=== PATIENT | male | born 1985 | race Caucasian/White ===

== ENCOUNTER 2016-10-18 20:15 | Observation (INO) ==
[2016-10-18] MEDS ORDERED: SODIUM CHLORIDE 1,000 ML IV STA (20:18)
[2016-10-18] MEDS ORDERED: TORADOL IVP STA (20:34)
[2016-10-18] MEDS ORDERED: PHENERGAN 25 MG/ML VIAL 25 MG in SODIUM CHLORIDE 50 ML IV STA (20:34)
--- NOTE | 2016-10-18 20:36 | ED.PDOC ---
General ED Provider: Dr. FABIOLA MURPHY Chief Complaint: Nausea/Vomiting Stated Complaint: Patient is a 31 year old who comes to the ER with Nausea vomiting and Diarrhea for the past 3 days. He was seen in the ER at [place] and given zofran. was told it was food poisoning. Continued to drive but had more diarrhea and abdominal cramping so stopped in the ER. Time Seen by Physician: 20:34 Mode of Arrival: Walk-In Information Source: Patient Nursing and Triage Documentation Reviewed and Agree: Yes GI Complaint Exam - Vomiting/Diarrhea Complaint/Exam Onset/Duration: 3 days Symptoms Are: Still present Episodes of Vomiting over last 24 Hours: 10 Episodes of Diarrhea Over Last 24 Hours: 5 Character of Vomiting: Reports: Non-bilious Character of Diarrhea: Reports: Watery Aggravating: Reports: Food Alleviating: Reports: None Associated Signs and Symptoms: Reports: Abdominal pain, Cramping Non-GI Risk Factors: Reports: None Surgical Obstruction Risk Factors: Reports: None Related Surgical History: Reports: None Abdominal Findings: Present: None Kussmaul Respirations Present: No Differential Diagnoses: Gastritis, Viral Gastroenteritis, Bacterial Gastroenteritis Review of Systems - Review Of Systems Constitutional: Reports: Loss of appetite Eyes: Reports: No symptoms Ears, Nose, Mouth, Throat: Reports: No symptoms Respiratory: Reports: No symptoms Cardiac: Reports: No symptoms GI: Reports: Diarrhea, Nausea, Poor appetite, Vomiting : Reports: No symptoms Musculoskeletal: Reports: No symptoms Skin: Reports: No symptoms Neurological: Reports: No symptoms Endocrine: Reports: No symptoms Hematologic/Lymphatic: Reports: No symptoms All Other Systems: Reviewed and Negative Past Medical History - Past Medical History Previously Healthy: Yes Endocrine: Reports: None Cardiovascular: Reports: None Respiratory: Reports: None Hematological: Reports: None Gastrointestinal: Reports: None Genitourinary: Reports: None Neuro/Psych: Reports: Migraine Musculoskeletal: Reports: None Cancer: Reports: None - Surgical History General Surgical History: Reports: Orthopedic (LEFT KNEE DEBRIDEMENT 2012) - Family History Family History: Reports: None - Social History Smoking Status: Never smoker Hx Substance Use: No Alcohol Screening: Occasionally - Immunizations Tetanus Shot up to Date: Yes Physical Exam - Physical Exam Appearance: Ill-appearing, Well-nourished Ill-appearing: Moderate Eyes: ABHI, EOMI, Conjunctiva clear ENT: Ears normal, Nose normal, Oropharynx normal Neck: Supple Respiratory: Airway patent, Breath sounds clear, Breath sounds equal, Respirations nonlabored Cardiovascular: Pulses normal, No rub, No murmur, Tachycardia GI/: Soft, No masses, No Organomegaly, Tender (diffuse ), Bowel sounds hyperactive Musculoskeletal: Normal strength, ROM intact, No edema, No calf tenderness Skin: Warm, Dry, Normal color Neurological: Sensation intact, Motor intact, Reflexes intact, Cranial nerves intact, Alert, Oriented Psychiatric: Anxious Critical Care Note - Critical Care Note Total Time (mins): 35 Course - Course Hematology/Chemistry: 10/19/16 04:45 10/19/16 04:45 Orders, Labs, Meds: Lab Review 10/18/16 20:40 WBC 6.16 RBC 5.11 Hgb 14.8 Hct 42.4 MCV 83.0 MCH 29.0 MCHC 34.9 RDW Coeff of Liezth 13.6 Plt Count 179 Immature Gran % (Auto) 0.2 Neut % (Auto) 73.4 Lymph % (Auto) 14.3 Alcorn % (Auto) 9.4 Eos % (Auto) 2.4 Baso % (Auto) 0.3 Immature Gran # (Auto) 0.0 Neut # 4.5 Lymph # 0.9 Alcorn # 0.6 Eos # 0.2 Baso # 0.0 Sodium 141 Potassium 3.1 L Chloride 102 Carbon Dioxide 28 Anion Gap 14.1 BUN 11 Creatinine 1.01 Estimated GFR (MDRD) 87.00 BUN/Creatinine Ratio 10.89 Glucose 103 H Calcium 9.1 Total Bilirubin 0.52 AST 18 ALT 43 Alkaline Phosphatase 64 Total Protein 6.8 Albumin 3.7 Globulin 3.1 Albumin/Globulin Ratio 1.19 Amylase 33 Lipase 11 Orders Category Date Time Status PLACE PATIENT OBSERVATION .TO MEDSURG (MONITORED BED ADMISSION 10/18/16 22: 50 Inactive ) PLACE PATIENT OBSERVATION .TO MEDSURG (NON-MONITORED ADMISSION 10/18/16 23: 04 Active BED) GIVE HS SNACK 2100 CARE 10/18/16 23:01 Active INTAKE & OUTPUT Q8HR CARE 10/18/16 22:50 Completed TELEMETRY MONITORING TELE CARE 10/18/16 22:58 Inactive VITAL SIGNS Q8HR CARE 10/18/16 22:50 Completed CLEAR LIQUID DIET DIETARY 10/18/16 Breakfast Ordered HS SNACK DIETARY 10/18/16 Dinner Ordered ED IV/MEDIPORT/POWERPORT .ONCE EMERGENCY 10/18/16 20:18 Active AMYLASE Stat LAB 10/18/16 20:40 Completed BASIC METABOLIC PANEL DAILY@0600 LAB 10/19/16 04:45 Completed BASIC METABOLIC PANEL DAILY@0600 LAB 10/20/16 06:00 Ordered BASIC METABOLIC PANEL DAILY@0600 LAB 10/21/16 06:00 Ordered BASIC METABOLIC PANEL DAILY@0600 LAB 10/22/16 06:00 Ordered BASIC METABOLIC PANEL DAILY@0600 LAB 10/23/16 06:00 Ordered BASIC METABOLIC PANEL DAILY@0600 LAB 10/24/16 06:00 Ordered BASIC METABOLIC PANEL DAILY@0600 LAB 10/25/16 06:00 Ordered BASIC METABOLIC PANEL DAILY@0600 LAB 10/26/16 06:00 Ordered BASIC METABOLIC PANEL DAILY@0600 LAB 10/27/16 06:00 Ordered BASIC METABOLIC PANEL DAILY@0600 LAB 10/28/16 06:00 Ordered BASIC METABOLIC PANEL DAILY@0600 LAB 10/29/16 06:00 Ordered BASIC METABOLIC PANEL DAILY@0600 LAB 10/30/16 06:00 Ordered BASIC METABOLIC PANEL DAILY@0600 LAB 10/31/16 06:00 Ordered BASIC METABOLIC PANEL DAILY@0600 LAB 11/01/16 06:00 Ordered BASIC METABOLIC PANEL DAILY@0600 LAB 11/02/16 06:00 Ordered BASIC METABOLIC PANEL DAILY@0600 LAB 11/03/16 06:00 Ordered BASIC METABOLIC PANEL DAILY@0600 LAB 11/04/16 06:00 Ordered BASIC METABOLIC PANEL DAILY@0600 LAB 11/05/16 06:00 Ordered BASIC METABOLIC PANEL DAILY@0600 LAB 11/06/16 06:00 Ordered BASIC METABOLIC PANEL DAILY@0600 LAB 11/07/16 06:00 Ordered CBC W/ AUTO DIFF DAILY@0600 LAB 10/19/16 04:45 Completed CBC W/ AUTO DIFF DAILY@0600 LAB 10/20/16 06:00 Ordered CBC W/ AUTO DIFF DAILY@0600 LAB 10/21/16 06:00 Ordered CBC W/ AUTO DIFF DAILY@0600 LAB 10/22/16 06:00 Ordered CBC W/ AUTO DIFF DAILY@0600 LAB 10/23/16 06:00 Ordered CBC W/ AUTO DIFF DAILY@0600 LAB 10/24/16 06:00 Ordered CBC W/ AUTO DIFF DAILY@0600 LAB 10/25/16 06:00 Ordered CBC W/ AUTO DIFF DAILY@0600 LAB 10/26/16 06:00 Ordered CBC W/ AUTO DIFF DAILY@0600 LAB 10/27/16 06:00 Ordered CBC W/ AUTO DIFF DAILY@0600 LAB 10/28/16 06:00 Ordered CBC W/ AUTO DIFF DAILY@0600 LAB 10/29/16 06:00 Ordered CBC W/ AUTO DIFF DAILY@0600 LAB 10/30/16 06:00 Ordered CBC W/ AUTO DIFF DAILY@0600 LAB 10/31/16 06:00 Ordered CBC W/ AUTO DIFF DAILY@0600 LAB 11/01/16 06:00 Ordered CBC W/ AUTO DIFF DAILY@0600 LAB 11/02/16 06:00 Ordered CBC W/ AUTO DIFF DAILY@0600 LAB 11/03/16 06:00 Ordered CBC W/ AUTO DIFF DAILY@0600 LAB 11/04/16 06:00 Ordered CBC W/ AUTO DIFF DAILY@0600 LAB 11/05/16 06:00 Ordered CBC W/ AUTO DIFF DAILY@0600 LAB 11/06/16 06:00 Ordered CBC W/ AUTO DIFF DAILY@0600 LAB 11/07/16 06:00 Ordered CBC W/ AUTO DIFF Stat LAB 10/18/16 20:40 Completed COMPREHENSIVE METABOLIC PANEL Stat LAB 10/18/16 20:40 Completed LIPASE Stat LAB 10/18/16 20:40 Completed URINALYSIS C & S IF INDICATED Stat LAB 10/18/16 20:18 Completed 0.9 % Sodium Chloride [Saline Flush] MEDS 10/18/16 20:24 Active 1 syr IVF PRN PRN Cetirizine HCl [Zyrtec] MEDS 10/19/16 09:00 Active 10 mg PO DAILY Diphenoxylate HCl/Atropine [Lomotil] MEDS 10/19/16 09:00 Active 1 tab PO TID Enoxaparin Sodium [Lovenox] MEDS 10/19/16 09:00 Active 40 mg SUBCUT DAILY Ketorolac Tromethamine [Toradol] MEDS 10/18/16 20:34 Discontinued 30 mg IVP ONCE STA Ondansetron HCl/Pf [Zofran 4 mg/2 ml] MEDS 10/18/16 22:57 Discontinued 4 mg .ROUTE .STK-MED ONE Ondansetron HCl/Pf [Zofran 4 mg/2 ml] MEDS 10/18/16 23:02 Discontinued 4 mg IVP ONCE STA Ondansetron HCl/Pf [Zofran 4 mg/2 ml] MEDS 10/18/16 22:50 Active 4 mg IVP Q6H PRN Pantoprazole Sodium [Protonix IV] MEDS 10/19/16 09:00 Active 40 mg IVP DAILY Pantoprazole Sodium [Protonix IV] MEDS 10/18/16 20:37 Discontinued 40 mg IVP ONCE STA Potassium Chloride [K-Dur] MEDS 10/18/16 22:09 Discontinued 40 meq PO ONCE STA Promethazine HCl [Phenergan 25 mg/ml Vial] MEDS 10/18/16 20:46 Discontinued 25 mg .ROUTE .STK-MED ONE Promethazine HCl [Phenergan 25 mg/ml Vial] 25 mg MEDS 10/18/16 20:34 Discontinued 0.9 % Sodium Chloride [Sodium Chloride] 50 ml IV ONCE Sodium Chloride 0.9% [Sodium Chloride] 1,000 ml MEDS 10/18/16 20:18 Discontinued IV BOLUS Sodium Chloride 0.9% [Sodium Chloride] 2,000 ml MEDS 10/18/16 23:00 Active IV 150 mls/hr RESUSCITATION STATUS Routine OTHERS 10/18/16 22:50 Ordered Medications Generic Name Dose Route Start Last Admin Trade Name Freq PRN Reason Stop Dose Admin Cetirizine HCl 10 mg 10/19/16 09:00 Zyrtec PO DAILY NIYA Diphenoxylate HCl/Atropine 1 tab 10/19/16 09:00 Lomotil PO TID NIYA Enoxaparin Sodium 40 mg 10/19/16 09:00 Lovenox SUBCUT DAILY NIYA Sodium Chloride 2,000 mls @ 150 mls/hr 10/18/16 23:00 10/19/16 05:55 Sodium Chloride IV 150 mls/hr .[id number] NIYA Administration Ondansetron HCl 4 mg 10/18/16 22:50 Zofran 4 Mg/2 Ml IVP Q6H PRN Nausea / Vomiting Pantoprazole Sodium 40 mg 10/19/16 09:00 Protonix Iv IVP DAILY NIYA Sodium Chloride 1 syr 10/18/16 20:24 10/18/16 20:53 Saline Flush IVF 1 syr PRN PRN Administration To flush IV Discontinued Medications Generic Name Dose Route Start Last Admin Trade Name Freq PRN Reason Stop Dose Admin Sodium Chloride 1,000 mls @ 1,000 mls/hr 10/18/16 20:18 10/18/16 20:44 Sodium Chloride IV 10/18/16 21:17 1,000 mls/hr BOLUS STA Administration Promethazine HCl 25 mg/ Sodium 51 mls @ 75 mls/hr 10/18/16 20:34 10/18/16 21: 01 Chloride IV 10/18/16 21:14 75 mls/hr ONCE STA Administration Ketorolac Tromethamine 30 mg 10/18/16 20:34 10/18/16 21:01 Toradol IVP 10/18/16 20:35 30 mg ONCE STA Administration Ondansetron HCl 4 mg 10/18/16 23:02 10/18/16 23:21 Zofran 4 Mg/2 Ml IVP 10/18/16 23:03 4 mg ONCE STA Administration Pantoprazole Sodium 40 mg 10/18/16 20:37 10/18/16 20:50 Protonix Iv IVP 10/18/16 20:38 40 mg ONCE STA Administration Potassium Chloride 40 meq 10/18/16 22:09 10/18/16 22:17 K-Dur PO 10/18/16 22:10 40 meq ONCE STA Administration Vital Signs: Temp Pulse Resp BP Pulse Ox 10/18/16 20:17 99.4 F 105 H 18 154/99 H 94 L Departure - Departure Time of Disposition: 23:40 Disposition: PLACED OBSERVATION Discharge Problem: Nausea, Vomiting, Acute gastroenteritis Condition: Good Pt referred to PMD for follow-up: No (Admitted ) Allergies/Adverse Reactions: Allergies Penicillins Adverse Reaction (Verified 10/18/16 20:26) Home Medications: Ambulatory Orders Cetirizine HCl [Zyrtec] 10 mg PO DAILY 10/18/16 Loperamide HCl [Imodium] 2 mg PO LOOSE STOOL PRN PRN 10/18/16 Ondansetron HCl [Zofran] 4 mg PO Q8H PRN 10/18/16 Ranitidine HCl [Zantac] 150 mg PO BEDTIME PRN 10/18/16
[2016-10-18] MEDS ORDERED: PROTONIX IV IVP STA (20:37)
[2016-10-18 20:42] LABS: BASOPHILS % (AUTO) 0.3 % (0.0-3.0); EOSINOPHILS # (AUTO) 0.2 K/ul (0.0-0.7); EOSINOPHILS % (AUTO) 2.4 % (0.0-7.0); HEMATOCRIT 42.4 % (42.0-52.0); HEMOGLOBIN 14.8 g/dl (14.0-18.0); IMMATURE GRANULOCYTE % (AUTO) 0.2 % (0.0-5.0); LYMPHOCYTES # (AUTO) 0.9 K/uL (0.60-3.4); LYMPHOCYTES % (AUTO) 14.3 (10.0-50.0); MEAN CORPUSCULAR HGB CONC 34.9 (31.8-35.4); MONOCYTES # (AUTO) 0.6 K/uL (0.4-2.0); MONOCYTES % (AUTO) 9.4 (0-10); NEUTROPHILS # (AUTO) 4.5 K/ul (2.0-6.9); NEUTROPHILS % (AUTO) 73.4; PLATELET COUNT 179 10^3/uL (140-440); RED BLOOD COUNT 5.11 10^6/ul (4.70-6.10); WHITE BLOOD COUNT 6.16 K/ul (4.2-10.2)
[2016-10-18] MEDS ORDERED: PHENERGAN 25 MG/ML VIAL ONE (20:46)
[2016-10-18 21:03] LABS: ALBUMIN 3.7 g/dL (3.4-5.0); ALBUMIN/GLOBULIN RATIO 1.19; ANION GAP 14.1; BILIRUBIN,TOTAL 0.52 mg/dL (0.00-1.20); BUN/CREATININE RATIO 10.89; CALCIUM 9.1 mg/dL (8.2-10.2); CREATININE 1.01 mg/dL (0.60-1.10); POTASSIUM 3.1 mmol/L (3.5-5.1); TOTAL PROTEIN 6.8 g/dL (6.4-8.2)
[2016-10-18] MEDS ORDERED: K-DUR PO STA (22:09)
[2016-10-18] MEDS: SODIUM CHLORIDE 2,000 ML IV SCH (22:45)
[2016-10-18] MEDS ORDERED: ZOFRAN 4 MG/2 ML IVP PRN (22:50)
[2016-10-18] MEDS ORDERED: ZOFRAN 4 MG/2 ML ONE (22:57)
[2016-10-18] MEDS ORDERED: ZOFRAN 4 MG/2 ML IVP STA (23:02)
[2016-10-19 00:26] VITALS: BMI 36.8
[2016-10-19 00:56] LABS: BILIRUBIN,URINE Negative (NEGATIVE); KETONES,URINE Negative (NEGATIVE); LEUKOCYTE ESTERASE ,URINE Negative (NEGATIVE); NITRITE,URINE Negative (NEGATIVE); PROTEIN,URINE Negative (NEGATIVE); URINE, BLOOD Negative (NEGATIVE)
[2016-10-19 00:59] LABS: ADD URINE MICROSCOPIC NO
[2016-10-19 05:34] LABS: BASOPHILS % (AUTO) 0.2 % (0.0-3.0); EOSINOPHILS # (AUTO) 0.1 K/ul (0.0-0.7); EOSINOPHILS % (AUTO) 1.4 % (0.0-7.0); HEMATOCRIT 38.4 % (42.0-52.0); HEMOGLOBIN 13.3 g/dl (14.0-18.0); IMMATURE GRANULOCYTE % (AUTO) 0.2 % (0.0-5.0); LYMPHOCYTES # (AUTO) 0.9 K/uL (0.60-3.4); LYMPHOCYTES % (AUTO) 17.8 (10.0-50.0); MEAN CORPUSCULAR HEMOGLOBIN 28.8 pg (27.0-31.0); MEAN CORPUSCULAR HGB CONC 34.6 (31.8-35.4); MEAN CORPUSCULAR VOLUME 83.1 fl (80.0-94.0); MONOCYTES # (AUTO) 0.5 K/uL (0.4-2.0); MONOCYTES % (AUTO) 9.9 (0-10); NEUTROPHILS # (AUTO) 3.4 K/ul (2.0-6.9); NEUTROPHILS % (AUTO) 70.5; PLATELET COUNT 162 10^3/uL (140-440); RED BLOOD COUNT 4.62 10^6/ul (4.70-6.10); WHITE BLOOD COUNT 4.84 K/ul (4.2-10.2)
[2016-10-19] MEDS: SODIUM CHLORIDE 2,000 ML IV SCH ×3 (05:55→14:19)
[2016-10-19 06:01] LABS: ANION GAP 14.3; BUN/CREATININE RATIO 14.1; CALCIUM 8.2 mg/dL (8.2-10.2); CREATININE 0.78 mg/dL (0.60-1.10); POTASSIUM 3.3 mmol/L (3.5-5.1)
[2016-10-19] MEDS: LOMOTIL PO SCH ×3 (09:02→20:10)
[2016-10-19] MEDS: ZYRTEC PO SCH (09:04)
[2016-10-19] MEDS: LOVENOX SUBCUT SCH (09:07)
[2016-10-19] MEDS: PROTONIX IV IVP SCH (09:28)
[2016-10-19] MEDS ORDERED: K-DUR PO STA (13:31)
[2016-10-19] MEDS ORDERED: TYLENOL PO PRN (13:46)
[2016-10-20 05:26] LABS: BASOPHILS % (AUTO) 0.5 % (0.0-3.0); EOSINOPHILS # (AUTO) 0.4 K/ul (0.0-0.7); EOSINOPHILS % (AUTO) 6.1 % (0.0-7.0); HEMATOCRIT 38.5 % (42.0-52.0); HEMOGLOBIN 13.6 g/dl (14.0-18.0); IMMATURE GRANULOCYTE % (AUTO) 0.3 % (0.0-5.0); LYMPHOCYTES # (AUTO) 1.7 K/uL (0.60-3.4); LYMPHOCYTES % (AUTO) 27.3 (10.0-50.0); MEAN CORPUSCULAR HEMOGLOBIN 29.2 pg (27.0-31.0); MEAN CORPUSCULAR HGB CONC 35.3 (31.8-35.4); MEAN CORPUSCULAR VOLUME 82.8 fl (80.0-94.0); MONOCYTES # (AUTO) 0.6 K/uL (0.4-2.0); MONOCYTES % (AUTO) 9.2 (0-10); NEUTROPHILS # (AUTO) 3.5 K/ul (2.0-6.9); NEUTROPHILS % (AUTO) 56.6; PLATELET COUNT 184 10^3/uL (140-440); RED BLOOD COUNT 4.65 10^6/ul (4.70-6.10); WHITE BLOOD COUNT 6.22 K/ul (4.2-10.2)
[2016-10-20 05:37] LABS: ANION GAP 14.1; BUN/CREATININE RATIO 7.79; CALCIUM 8.8 mg/dL (8.2-10.2); CREATININE 0.77 mg/dL (0.60-1.10); POTASSIUM 3.1 mmol/L (3.5-5.1)
[2016-10-20] MEDS: LOMOTIL PO SCH (08:29)
[2016-10-20] MEDS: LOVENOX SUBCUT SCH ×2 (08:29→08:32)
[2016-10-20] MEDS: ZYRTEC PO SCH (08:29)
[2016-10-20] MEDS: PROTONIX IV IVP SCH (08:30)
[2016-10-20] MEDS ORDERED: K-DUR PO STA ×2 (08:32→09:07)
[2016-10-20 11:04] VITALS: BP 144/95; TEMP 98
--- NOTE | 2016-10-20 14:22 | PN ---
DATE OF SERVICE: 10/18/16 CHIEF COMPLAINT: Nausea and vomiting. HISTORY OF PRESENT ILLNESS: The patient is a 31 year old male was started from [place] traveling home from [place] to the [place] started having the nausea, vomiting and diarrhea. Went to the emergency room in [place] and was given some IV fluids and Zofran got better and started driving again. While passing through [place] started having the diarrhea and this is 10 time, watery and nonbloody diarrhea five times and nonbloody and only watery diarrhea, cramps and was not feeling good so came to the emergency room and was seen by Dr. Avitia in the [place] ER.Initial Potassium was 3.1, glucose 103. He did says that he had some sandwich at the [employer] which started the symptoms. At that time Dr. Avitia did give some IV fluids and Phenergan and Protonix. The patient was still not able to keep anything down. At that time the patient is admitted to observation for acute gastroenteritis and intractable nausea and vomiting with the food poisoning and Hypokalemia. REVIEW OF SYSTEMS: CONSTITUTIONAL: No fever, no chills. HEENT: Normal. ENDOCRINE: No weight gain; no weight loss. CVS: No chest pain. No PND, no orthopnea. No shortness of breath. No PND, no orthopnea. RESPIRATORY: No cough, no congestion. No hemoptysis. GI: No nausea, no vomiting. No abdominal pain. No melena. : No hematuria. No polyuria. MUSCULOSKELETAL: No joint swelling. PSYCHIATRIC: Not anxious. No depression. No suicidal thoughts. No homicidal thoughts. SKIN: Intact, no open lesions. PHYSICAL EXAMINATION: V/S: Blood pressure 154/99, respiratory rate 18, heart rate 105, temperature 100.1. GENERAL: The patient is sick looking. HEENT: Atraumatic, normocephalic. No scleral icterus. Mucosa dry. NECK: Supple. No JVD, no bruit. No lymphadenopathy. No thyromegaly. HEART: S1, S2 normal. No murmur. No cyanosis or clubbing. No ascites. LUNGS: Clear to auscultation. No rales or rhonchi. ABDOMEN: Soft, discomfort all over. Bowel sounds are hyperactive. No CVA tenderness. No rigidity or guarding. EXTREMITIES: No cyanosis, clubbing or pedal edema. MUSCULOSKELETAL: Normal joints, no swelling. NEUROLOGIC: The patient is SKIN: Intact; no open lesions. LYMPHATIC: No lymph nodes palpable. LABS: Sodium 141, potassium 3.1, chloride 102, bicarb 28, BUN 11, creatinine 1.01, WBC 6.16, hgb 14.8, hct 42.4, plt count 179. U/A negative for any infection ASSESSMENT: 1. Acute gastroenteritis 2. Intractable nausea and vomiting 3. Abdominal pain 4. Hypokalemia PLAN: 1. Admit the patient to observation 2. IV fluids 150ml per hour 3. Phenergan 4. Zofran Q 6 hours 5. Protonix 40mg PO daily 6. Clear liquid diet 7. Lovenox for the DVT prophylaxis. Will follow the patient in daily rounds. TIME SPENT: MORE THAN 50-60 minutes MTDD
--- NOTE | 2016-10-20 14:27 | PN ---
DATE OF SERVICE: 10/19/16 SUBJECTIVE: The patient was admitted with intractable nausea and vomiting. Since the patient started having some clear liquids the patient was able to keep down. Still has nausea. No diarrhea. Did have fever of 100.1 and 101.5 in the night. REVIEW OF SYSTEMS: CONSTITUTIONAL: No fever, no chills. HEENT: Normal. ENDOCRINE: No weight gain, no weight loss. CVS: No angina symptoms. No CHF symptoms. No palpitations. No atypical chest pain for CAD. No shortness of breath. No PND, no orthopnea. RESPIRATORY: No cough, no hemoptysis. GI: No nausea, no vomiting. No abdominal pain. : No hematuria. No polyuria. MUSCULOSKELETAL:. No joint swelling. PSYCHIATRIC: Not anxious. No depression. No suicidal thoughts. No homicidal thoughts. SKIN: Intact. No rash. PHYSICAL EXAMINATION: V/S: Blood pressure 128/82, respiratory rate 18, heart rate 71, temperature 97.4. HEENT: Normocephalic, atraumatic. Mucosa dry. NECK: Supple. No JVD, no carotid bruit. No lymphadenopathy. LUNGS: Clear to auscultation. No rales or rhonchi. HEART: S1, S2 normal. No S3. No murmur, gallop or regurgitation. ABDOMEN: Soft, Discomfort in the epigastric area is still present. Bowel sounds active. No rigidity. No rebound or guarding. No CVA tenderness. EXTREMITIES: No clubbing, cyanosis or pedal edema. MUSCULOSKELETAL: No joint swelling. NEUROLOGIC: Awake, alert, oriented times three. No focal deficit. LYMPHATIC: No lymph nodes palpable. SKIN: Intact. LABS: Sodium 139, potassium 3.3, chloride 105, bicarb 23, BUN 11, creatinine 0.78. WBC 4.84, Hgb 13.3, hct 38.4, plt count 162. ASSESSMENT: 1. Acute gastroenteritis 2. Food poisoning 3. Intractable Nausea 4. Vomiting 5. Hypokalemia PLAN: 1. K-Dur 40 meq 2. Soft diet 3. Advance diet as tolerated 4. Continue IV fluids and Zofran 5. Lovenox for the DVT prophylaxis Follow the patient in daily rounds. TIME SPENT: More than 30 minutes MTDD
--- NOTE | 2016-11-04 14:46 | SSS ---
DATE OF SERVICE: 10/20/16 CHIEF COMPLAINT: Nausea, vomiting. HISTORY OF PRESENT ILLNESS: This 31 year old male was travelling from the [place] to [place] and the patient starting having nausea and vomiting after eating a sandwich at [employer]. He went to the emergency room and they gave him some Zofran and IV fluids. He felt that he was better and he started driving. By the time he reached [place] he had almost 8 to 10 vomiting episodes and 5 to 6 of diarrhea. The diarrhea was only watery diarrhea, nonbloody. Vomitus consisted of the food material and the water and no blood. He was seen and evaluated by Dr. Avitia in the emergency room. White count was 14,000, potassium 3.1. After giving the Phenergan and IV fluids, the patient was still not able to keep anything down. At that time, the patient was admitted to the hospital for the IV fluids and dehydration. REVIEW OF SYSTEMS: CONSTITUTIONAL: Weakness, tiredness. No night sweats. No fatigue, malaise, lethargy. No fever or chills. HEENT: Eyes: No visual changes. No eye pain. No eye discharge. ENT: No runny nose. No epistaxis. No sinus pain. No sore throat. No odynophagia. No ear pain. No congestion. RESPIRATORY: Cough, no congestion. No hemoptysis. No shortness of breath. CARDIOVASCULAR: No angina symptoms. No CHF symptoms. No atypical chest pain for CAD. No palpitations. No orthopnea. GASTROINTESTINAL: Abdominal pain and cramping. Nausea and vomiting. Diarrhea , no constipation. No hematemesis. No hematochezia. GENITOURINARY: No urgency. No frequency. No dysuria. No hematuria. No obstructive symptoms. No discharge. No pain. No significant abnormal bleeding. MUSCULOSKELETAL: No musculoskeletal pain. No joint swelling. NEUROLOGICAL: Awake, alert, oriented to time, place and person. No headache. No neck pain. No syncope. No seizures. No dizziness. PSYCHIATRIC: Not anxious. No depression. No suicidal thoughts. No homicidal thoughts. SKIN: No rash. No lesions. No wounds. ENDOCRINE: No unexplained weight loss. No weight gain. HEMATOLOGIC/LYMPHATIC: No anemia. No purpura. No petechiae. No prolonged or excessive bleeding. No palpable lymph nodes. PAST HISTORY: History of pneumonia in 2015 Nausea and vomiting on recent one PAST SURGICAL HISTORY: Vasectomy. Recent travel September 2016 to [facility]. PERSONAL/FAMILY HISTORY/SOCIAL HISTORY: and he has a family. He is an [employer]. Family history is not significant. ALLERGIES: Allergic to the Penicillin. Does not know what happens. MEDICATIONS: Imodium, Zofran, Zantac and Zyrtec. PHYSICAL EXAMINATION: GENERAL: Sick looking man lying in the bed in mild distress. He looks dehydrated. VITAL SIGNS: Blood pressure 159/90, respiratory rate 18, heart rate 105, temperature 99.4. Saturation 94. HEENT: Head normocephalic, atraumatic. Mucosa dry. Eyes: Extraocular muscles are intact. Pupils are equal, round and reactive to light and accommodation. Ears: No lesions. Nose appeared normal. Throat: No exudate or erythema. NECK: Supple. No JVD, no carotid bruit. No lymphadenopathy or thyromegaly. LUNGS: Clear to auscultation. Percussion note normal. Chest symmetrical. HEART: S1, S2, no S3. No murmurs. No cyanosis or clubbing. No ascites. Pulses: Dorsalis pedis and posterior tibial pulses +1 to +2 both sides. ABDOMEN: Discomfort. Bowel sounds hyperactive. No CVA tenderness. No mass felt. EXTREMITIES: No edema. Full range of motion of all extremities, equal. NEUROLOGIC: No focal deficit. Cranial nerves II through XII are grossly intact. No headache, no double vision or headache. SKIN: Not dry. Intact. Turgor - normal. LYMPHATIC: No palpable lymph nodes/no lymphedema. MUSCULOSKELETAL: Normal joints with no swelling. Muscle tone is normal. ER records reviewed LABS/EKG'S/X-RAY/ECHO/ABG: White count 6.16, hemoglobin 13.3, hematocrit 38.4, platelet count 162, sodium 139, potassium 3.7, chloride 103. Initial potassium was 3.1, then 3.3, then 3.1. Glucose 102, 103. BUN and creatinine normal. BRIEF HOSPITAL COURSE: The patient was admitted to the hospital and started on IV fluids, Phenergan and Zofran. Initially clear liquids were started. He could tolerate it so then advanced to soft diet. He tolerated it. At that time , the patient is being discharged to home. FINAL DIAGNOSES: 1. INTRACTABLE NAUSEA AND VOMITING 2. ACUTE GASTROENTERITIS FROM FOOD POISONING 3. HISTORY OF PNEUMONIA IN THE PAST PLAN: 1. Discharge the patient home. 2. Carafate 1 gram hc and hs. 3. Protonix 40 mg p.o. daily. 4. Zofran 4 mg every 6-8 hours. 5. Clear liquids and soft diet until seen by PMD. 6. Take rest if possible. TIME SPENT: More than 65 minutes. MTDD
== END 2016-10-20 13:43 | disposition home or self-care (01) ==
LOC: ED 20:15 → MEDSURG B 23:27
PROVIDERS: ADMIT Emergency Medicine; ATTEND Emergency Medicine
DX: T62.8X1A Toxic effect of other specified noxious substances eaten as food, accidental (unintentional), initial encounter (principal); R11.2 Nausea with vomiting, unspecified; R19.7 Diarrhea, unspecified; E87.6 Hypokalemia; R50.9 Fever, unspecified; Y92.89 Other specified places as the place of occurrence of the external cause
CPT/HCPCS: 36415; 80048; 80053; 81001; 82150; 83690; 84132; 85025; 96361; 96365; 96375; 99284